=== PATIENT | male | born 1970 | race African-American/Black ===

== ENCOUNTER → 2016-10-07 | Outpatient (CLI) | payer MEDICAID | LOC: RAD 07:39 | PROVIDERS: ATTEND Physician Assistant | DX: R06.2 Wheezing (principal); K21.9 Gastro-esophageal reflux disease without esophagitis; K44.9 Diaphragmatic hernia without obstruction or gangrene | CPT/HCPCS: 74210 ==

== ENCOUNTER → 2017-11-27 | Outpatient (CLI) | payer MEDICAID ==
[2017-11-27 19:09] LABS: FREE T3 3.84 pg/mL (2.77-5.27); FREE T4 (FREE THYROXINE) 0.98 ng/dL (0.78-2.19)
[2017-11-27 19:22] LABS: THYROID STIMULATING HORMONE 3.53 uIU/mL (0.47-4.68)
== END ==
LOC: OD 15:16
PROVIDERS: ATTEND Specialist
DX: G70.01 Myasthenia gravis with (acute) exacerbation (principal)
CPT/HCPCS: 36415; 84439; 84443; 84481

== ENCOUNTER → 2017-12-01 | Outpatient (CLI) | payer MEDICAID | LOC: OD 11:17 | PROVIDERS: ATTEND Specialist | DX: G70.01 Myasthenia gravis with (acute) exacerbation (principal) | CPT/HCPCS: 36415; 83519 ==

== ENCOUNTER → 2018-08-22 | Outpatient (CLI) | payer MEDICAID ==
--- NOTE | 2018-08-22 15:48 | RADIOLOGY REPORT (SQ) ---
EXAM DESCRIPTION: CHEST PA/LATERAL COMPLETED DATE/TIME: 08/22/2018 3:14 pm REASON FOR STUDY: WHEEZING COMPARISON: 05/09/2012 EXAM PARAMETERS: NUMBER OF VIEWS: two views TECHNIQUE: Digital Frontal and Lateral radiographic views of the chest acquired. RADIATION DOSE: NA LIMITATIONS: none FINDINGS: LUNGS AND PLEURA: No opacities, masses or pneumothorax. No pleural effusion. MEDIASTINUM AND HILAR STRUCTURES: No masses or contour abnormalities. HEART AND VASCULAR STRUCTURES: Heart normal size. No evidence for failure. BONES: No acute findings. HARDWARE: Prior anterior median sternotomy. OTHER: Hiatal hernia suggested. IMPRESSION: 1. NO SIGNIFICANT RADIOGRAPHIC FINDING IN THE CHEST. 2. Hiatal hernia. TECHNICAL DOCUMENTATION: JOB ID: [id number] [employer]- All Rights Reserved Reading location - IP/workstation name: [email or web address]
== END ==
LOC: OD 15:08
PROVIDERS: ATTEND Physician Assistant
DX: R06.2 Wheezing (principal)
CPT/HCPCS: 71046

== ENCOUNTER → 2019-03-27 | Outpatient (CLI) | payer MEDICAID ==
--- NOTE | 2019-03-27 15:06 | RADIOLOGY REPORT (SQ) ---
EXAM DESCRIPTION: T SPINE AP/LAT COMPLETED DATE/TIME: 03/27/2019 2:55 pm REASON FOR STUDY: DORSALGIA, UNSPECIFIED M54.9 DORSALGIA, UNSPECIFIED COMPARISON: None. NUMBER OF VIEWS: Two views. TECHNIQUE: AP and lateral radiographic images acquired of the thoracic spine. LIMITATIONS: None. FINDINGS: MINERALIZATION: Normal. ALIGNMENT: Normal. No scoliosis. VERTEBRAE: No fracture or bone lesion. Maintained height, normal segmentation. DISCS: No significant loss of height or significant narrowing. No large osteophytes. HARDWARE: Sternotomy hardware and surgical clips. Unchanged fractured inferior sternotomy wires. MEDIASTINUM AND SOFT TISSUES: Normal heart size and aortic contour. Hiatal hernia. VISUALIZED LUNG LUBIN: Clear. OTHER: No other significant finding. IMPRESSION: No evidence of acute bony abnormality. Hiatal hernia. TECHNICAL DOCUMENTATION: JOB ID: [id number] [employer]- All Rights Reserved Reading location - IP/workstation name: [email or web address]
--- NOTE | 2019-03-27 15:08 | RADIOLOGY REPORT (SQ) ---
EXAM DESCRIPTION: RIBS LEFT W/PA CHEST COMPLETED DATE/TIME: 03/27/2019 2:55 pm REASON FOR STUDY: DORSALGIA, UNSPECIFIED M54.9 DORSALGIA, UNSPECIFIED COMPARISON: None. TECHNIQUE: Frontal view of the chest and additional views of the left ribs acquired. NUMBER OF VIEWS: Five view. LIMITATIONS: None. FINDINGS: FRONTAL CXR: No pneumothorax. No pleural effusion. No atelectasis or infiltrates. RIBS: No displaced rib fractures. No lytic or blastic bony lesions. OTHER: Sternotomy changes. Hiatal hernia. IMPRESSION: NO PNEUMOTHORAX. NO DISPLACED RIB FRACTURES. COMMENT: SITE OF TRAUMA/COMPLAINT MARKED/STAMP COMPLETED: NO. TECHNICAL DOCUMENTATION: JOB ID: [id number] [employer]- All Rights Reserved Reading location - IP/workstation name: [email or web address]
== END ==
LOC: OD 14:31
PROVIDERS: ATTEND Physician Assistant
DX: M54.9 Dorsalgia, unspecified (principal)
CPT/HCPCS: 72070

== ENCOUNTER → 2019-10-21 | Outpatient (CLI) | payer MEDICAID ==
[2019-10-21 10:04] LABS: FREE T3 4.54 pg/mL (2.77-5.27); FREE T4 (FREE THYROXINE) 0.78 ng/dL (0.78-2.19)
[2019-10-21 10:18] LABS: THYROID STIMULATING HORMONE 2.14 uIU/mL (0.47-4.68)
== END ==
LOC: OD 08:22
PROVIDERS: ATTEND Specialist
DX: G70.1 Toxic myoneural disorders (principal); R73.03 Prediabetes; I95.9 Hypotension, unspecified
CPT/HCPCS: 36415; 83036; 83519; 84439; 84443; 84481